=== PATIENT | male | born 1950 | race Two or more races ===

== ENCOUNTER 2017-05-04 15:07 | Emergency (ER) | payer MEDICARE, MEDICAID ==
[~2017-05-04] VITALS: Ht 167.6 cm; Wt 72.6 kg
[2017-05-04] MEDS ORDERED: Acetaminophen 500mg (ES) tab ORAL ONE (15:15)
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
[2017-05-04 15:20] VITALS: BP 138/69
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
[2017-05-04 16:30] VITALS: BP 151/71
--- NOTE | 2017-05-04 16:30 | Diagnostic Imaging Report ---
Indication: Neck pain. Technique: Continuous helical imaging of the cervical spine was obtained transaxially from the skull base to the upper thoracic spine. 2-D coronal and sagittal reformatted images were obtained. Total Dose length Product (DLP): [address] Dose Index Volume (CTDIvol): 16.94, 0.5 mGy Comparison: None Findings: There is also demonstrated. There is no acute fracture identified. There is moderate narrowing of the C3-4 disc with associated endplate irregularity, sclerosis and osteophyte formation as well as retrolisthesis. Minimal anterolisthesis demonstrated at C4-5. Moderate disc disease also present at C5-6 and C6-7. No soft tissue swelling is identified. Vascular calcifications are present within the extracranial visualized carotid arteries. Small nodes noted throughout the neck. Impression: No acute injury identified. Moderate degenerative spondylosis as described above. Atherosclerotic The CT scanner at [facility] is accredited by the [employer] and the scans are performed using dose optimization techniques as appropriate to a performed exam including Automatic Exposure control.
--- NOTE | 2017-05-04 16:31 | Diagnostic Imaging Report ---
Indication: Headache Technique: Contiguous 5 mm thick transaxial imaging of the head obtained in a Siemens Sensation [address] scanner[address] Soft tissue and bone windows generated. Total Dose length Product (DLP): [address] Dose Index Volume (CTDIvol): 70.38, 0.15 mGy Comparison: none Findings: There is mild prominence of the ventricles, basal cisterns, and cerebral sulci consistent with atrophy. Mild, nonspecific, white matter hypoattenuation is noted throughout the brain consistent with chronic small vessel disease. There is no midline shift, edema, acute hemorrhage, mass effect, or abnormal extra-axial fluid collections. Bones and extra osseous soft tissues are unremarkable. Impression: No acute intracranial bleed, mass effect or edema. Mild atrophy of the brain. Nonspecific white matter hypoattenuation probably due to chronic small vessel disease. The CT scanner at [facility] is accredited by the [employer] and the scans are performed using dose optimization techniques as appropriate to a performed exam including Automatic Exposure control.
--- NOTE | 2017-05-04 16:44 | Diagnostic Imaging Report ---
Indication: Dyspnea Comparison: None A single view chest radiograph was obtained. Findings: Heart size is normal. There is a sternotomy present. Lungs are clear. Bones are osteopenic. Impression: No acute disease
[2017-05-04] MEDS ORDERED: HYDROCODON-ACE1 EA15 ORAL (16:46)
[2017-05-04 17:00] VITALS: BP 147/71
[2017-05-04] MEDS ORDERED: Naloxone 1mg/ml 2ml ONE (17:01)
[2017-05-04] MEDS ORDERED: Naloxone 0.4mg/ml Inj ONE (17:02)
== END 2017-05-04 17:08 | disposition home or self-care (01) ==
LOC: EDBD 15:07 → EMR 16:20
DX: S39.012A Strain of muscle, fascia and tendon of lower back, initial encounter (principal); S16.1XXA Strain of muscle, fascia and tendon at neck level, initial encounter; V89.2XXA Person injured in unspecified motor-vehicle accident, traffic, initial encounter; Y93.9 Activity, unspecified; Y99.9 Unspecified external cause status; I10 Essential (primary) hypertension; Z94.0 Kidney transplant status; Z95.1 Presence of aortocoronary bypass graft
CPT/HCPCS: 70450; 71010; 72125; 72131; 99284; J2310